=== PATIENT | female | born 1965 | race Two or more races ===

== ENCOUNTER 2025-07-18 21:24 | Emergency (ER) | payer OTHER ==
[~2025-07-18] VITALS: Ht 160 cm; Wt 77.1 kg
[2025-07-18 21:48] VITALS: BP 158/85; TEMP 98; O2SAT 99
== END 2025-07-19 02:47 | disposition left against medical advice (07) ==
LOC: ER 21:26
DX: Z00.00 Encounter for general adult medical examination without abnormal findings (principal); Z53.21 Procedure and treatment not carried out due to patient leaving prior to being seen by health care provider